=== PATIENT | female | born 1990 | race Caucasian/White ===

== ENCOUNTER 2021-07-12 05:55 | Inpatient (IN) | payer OTHER ==
[~2021-07-12] VITALS: Ht 172.7 cm; Wt 87.1 kg
--- NOTE | 2021-07-12 06:19 | NUR ---
PT WAS SWABBED FOR COVID 19
--- NOTE | 2021-07-12 12:59 | PR ---
[facility] [address] [facility] [place], [place] [address] Signed Progress Notes IP Datetime Report Generated by CPN: 07/12/2021 12:59 PROGRESS NOTES: [id number] Impression: Normal Progression of Labor; Reassuring Heart Rate Procedures: Artificial ROM Plan: Continue Present Management Informed Consent Obtain: Vaginal Delivery VITAL SIGNS: [id number] Vital Signs: Reviewed; Within Normal Limits EXAM: [id number] Dilatation: 2.0 Effacement: 70 Station: -2 Contractions: Irregular MEMBRANES: [id number] Comments: Pt seen and examined. Doing well. Cx now ripened and I recommended AROM. Verbal consent obtained and vertex noted to be well applied. AROM performed w/out difficulty. Reviewed anticipated course of remainder of delivery. FETUS A: [id number] FHR Baseline: 140 Variability: Moderate 6-25bpm Accelerations: 15X15 Decelerations: None FHR Category: Category I Presentation: Vertex Comments on Fetus A: No evidence of metabolic acidosis FETUS B: [id number] Signing Physician: Jose Cruz Bustos DO Copies: ~ *Electronically Signed* 07/12/21 1259 JOSE CRUZ BUSTOS DO PATIENT NAME: HUBERT WILSON PROGRESS NOTE DATE OF : 88 PHYSICIAN: JOSE CRUZ BUSTOS DO RPT #: [id number] REPORT IS CONFIDENTIAL AND NOT TO BE RELEASED WITHOUT AUTHORIZATION
--- NOTE | 2021-07-12 16:01 | PR ---
[facility] [address] [facility] [place], [place] [address] Signed Progress Notes IP Datetime Report Generated by CPN: 07/12/2021 16:01 PROGRESS NOTES: [id number] Impression: Normal Progression of Labor; Reassuring Heart Rate Procedures: Artificial ROM Plan: Continue Present Management; Anticipate Vaginal Delivery Informed Consent Obtain: Vaginal Delivery VITAL SIGNS: [id number] Vital Signs: Reviewed; Within Normal Limits EXAM: [id number] Dilatation: 2.0 Effacement: 70 Station: -2 Contractions: Irregular MEMBRANES: [id number] Comments: Pt c/o urge to push. 4cm per RN. Will monitor closely FETUS A: [id number] FHR Baseline: 140 Variability: Moderate 6-25bpm Accelerations: 15X15 Decelerations: None FHR Category: Category I Presentation: Vertex Comments on Fetus A: No evidence of metabolic acidosis FETUS B: [id number] Signing Physician: Jose Cruz Bustos DO Copies: ~ *Electronically Signed* 07/12/21 1601 JOSE CRUZ BUSTOS DO PATIENT NAME: HUBERT WILSON PROGRESS NOTE DATE OF : 88 PHYSICIAN: JOSE CRUZ BUSTOS DO [facility] #: [id number] REPORT IS CONFIDENTIAL AND NOT TO BE RELEASED WITHOUT AUTHORIZATION
--- NOTE | 2021-07-13 08:50 | PR ---
[facility] [address] [facility] [place], [place] [address] Signed PP Progress Notes Datetime Report Generated by CPN: 07/13/2021 08:49 SUBJECTIVE: [id number] Pain: Within Normal Limits Nausea/Vomiting: Denies Flatus: Yes Bowel Movement: Yes Vital Signs: [id number] Vital Signs: Reviewed; Within Normal Limits EXAM: Ongoing Cardiovascular: Normal Respiratory: Normal Abdomen/Uterus: Normal Lochia: Normal Vulva/Perineum: Not Done Breasts: Not Done CVA Tenderness: Normal Extremities: Normal Incision: Not Applicable Progress: Normal Exam Comments: Fundus firm U-2 nontender IMPRESSION/PLAN/PROCEDURES: [id number] Impression: Normal Progression Plan: Continue Present Management Progress Notes: Pt seen and examined. Doing well. Ambulating, voiding, and tolerating full diet. Pain and lochia minimal. without difficulty. No questions or concerns. Desires d/c home today if baby able to be discharged. All questions answered. Signing Physician: Jose Cruz Bustos DO Copies: ~ *Electronically Signed* 07/13/21 0849 JOSE CRUZ BUSTOS DO PATIENT NAME: HUBERT WILSON PROGRESS NOTE DATE OF : 88 PHYSICIAN: JOSE CRUZ BUSTOS DO RPT #: [id number] REPORT IS CONFIDENTIAL AND NOT TO BE RELEASED WITHOUT AUTHORIZATION
== END 2021-07-13 17:55 | disposition home or self-care (01) | DRG 807 ==
LOC: FBC 05:55
PROVIDERS: ADMIT Obstetrics & Gynecology; ATTEND Obstetrics & Gynecology
PROC: 10E0XZZ Delivery of Products of Conception, External Approach (ICD-10-PCS; principal; 2021-07-12)
PROC: 10907ZC Drainage of Amniotic Fluid, Therapeutic from Products of Conception, Via Natural or Artificial Opening (ICD-10-PCS; 2021-07-12)
PROC: 3E0P7VZ Introduction of Hormone into Female Reproductive, Via Natural or Artificial Opening (ICD-10-PCS; 2021-07-12)
PROC: 0HQ9XZZ Repair Perineum Skin, External Approach (ICD-10-PCS; 2021-07-12)
DX: O69.81X0 Labor and delivery complicated by cord around neck, without compression, not applicable or unspecified (principal); Z37.0 Single live birth; O70.0 First degree perineal laceration during delivery; Z3A.39 39 weeks gestation of pregnancy; Z20.822 Contact with and (suspected) exposure to COVID-19; Z87.891 Personal history of nicotine dependence; Z67.30 Type AB blood, Rh positive; Z88.2 Allergy status to sulfonamides
CPT/HCPCS: 36415; 85027; 86850; 86900; 86901; A9270; J2001; J2590; U0003